=== PATIENT | male | born 1985 | race American Indian/Alaskan Native ===

== ENCOUNTER 2021-10-15 18:24 | Emergency (ER) | payer OTHER ==
[2021-10-15] MEDS ORDERED: MORPHINE 4 MG/1 ML INJ IV ONE (20:13)
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
[2021-10-15] MEDS ORDERED: ONDANSETRON 4 MG/2 ML INJ ONE (20:49)
[2021-10-15] MEDS ORDERED: LIDOCAINE (2%) 20 MG/1 ML VIAL 20 ML MDV INFILTRATI ONE (21:29)
[2021-10-15] MEDS ORDERED: LET TOPICAL (LIDOCAINE/EPINEPHRINE/TETRACAINE) 3 ML TP ONE (21:29)
[2021-10-15] MEDS ORDERED: LORazepam 2 MG/ML VIAL IV ONE (21:29)
[2021-10-15] MEDS ORDERED: ONDANSETRON 4 MG/2 ML INJ IV STA (21:35)
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
[2021-10-16 02:32] VITALS: BP 126/78
== END 2021-10-16 01:59 | disposition left against medical advice (07) ==
LOC: ED 18:24
DX: S05.92XA Unspecified injury of left eye and orbit, initial encounter (principal); V89.2XXA Person injured in unspecified motor-vehicle accident, traffic, initial encounter; Y93.89 Activity, other specified; Y92.89 Other specified places as the place of occurrence of the external cause; Y99.8 Other external cause status
CPT/HCPCS: 70450; 70486; 96374; 96375; 99284; J2060; J2270; J2405; J3490